=== PATIENT | female | born 1980 ===

== ENCOUNTER 2024-11-30 11:28 | Outpatient (AMB) | payer BC, SELFPAY ==
--- NOTE | 2024-11-30 11:36 | MHC.PC.OV ---
Vital Signs 11/30/24 11:43 Height 5 ft 5 in Weight 70.76 kg BMI 26.0 BP 116/90 H Respiration 14 Pulse 95 Pulse Source Pulse Oximeter Temp 97.7 F Temp Source Temporal Artery Scan Pulse Oximetry (%) 99 Oxygen Delivery Method Room Air Intake Visit Reasons: ED F/U [employer] Required: No Accompanied by: Self / Same As Patient Allergies clindamycin Allergy (Mild, Verified 11/30/24 11:43) Rash promethazine [From Phenergan] Adverse Reaction (Mild, Verified 11/30/24 11:43) Hallucinations Medication List - Last Reconciled 11/30/24 by NATASHA Duval methocarbamol 750 mg PO Q8H HPI HPI Comments History of Present Illness Details 44-year-old female presents to the office today for post ER evaluation. She presented to [facility] ED on 11/27 due to severe left-sided neck pain radiating into the left arm that had been ongoing for 1 week. No imaging was performed and she was discharged with Medrol Dosepak and 600 mg of ibuprofen every 8 hours which she has been taking with a diagnosis of cervical radiculopathy. She tells me that about 11 days ago she went to a chiropractor who performed adjustment of her cervical spine and since then has been symptomatic. She is experiencing chronic pain in the left side of the neck into the trapezius with radiation into the left arm. She describes a constant heavy dull ache with paresthesias. The pain radiates from the neck into the posterior aspect of the left arm wrapping to the dorsum of the left forearm and into the 1st 2nd and 3rd fingers. She denies any weakness. Reports pain was initially 10/10 but has improved to a 5/10 with Medrol Dosepak. She states the pain is worse in the morning and with position changes and particularly when lying down. The pain is constant. She does have history of similar severe pain in fall of 2022. At that time, was also diagnosed with cervical radiculopathy which was thought to be exercise related as she had increased weight while doing squats with dumbbells held out in front of her. She does have history of using Olympic bars for exercise as well but with benefits representative weights. She did perform PT for about 6 weeks and did experience relief. She states symptoms are similar to that episode. Since then, she has not been able to exercise. ROS: General: No fevers, malaise, unintentional weight loss Cardiovascular: No chest pain, palpitations, or leg edema Respiratory: No shortness of breath, wheezing, cough MSK: see hpi Neuro: see hpi Skin: No rashes or lesions EXAM: Constitutional - Awake and Alert, No apparent distress Eyes - PERRL Cardiovascular - S1S2, RRR, No edema Respiratory - Normal lung expansion, Normal respiratory effort, No respiratory distress, CTA bilaterally Extremities - no calf tenderness bilaterally, no swelling Musculoskeletal - neck supple with limited range of motion side to side. No midline ttp, left sided paraspinal ttp extending into the upper trapezius without significant spasm. LUE nontender to palpation. radicular symptoms reproducible with compression of the trapezius muscle. Skin - Warm/Dry Neurological - Alert & oriented x3, 4/5 strength L biceps, otherwise 5/5 strength bue, decreased sensation to touch along the ulnar and radial aspect of the L forearm Psychological - Appropriate affect [facility] Medical History (Updated 11/30/24 @ 12:05 by NATASHA Duval) Cervical radiculopathy Questionnaire PHQ-9 Over the last 2 weeks, how often have you been bothered by any of the following problems? 1. Little interest or pleasure in doing things: not at all 2. Feeling down, depressed, or hopeless: not at all 3. Trouble falling or staying asleep, or sleeping too much: not at all 4. Feeling tired or having little energy: not at all 5. Poor appetite or overeating: not at all 6. Feeling bad about yourself - or that you are a failure or have let yourself or your family down: not at all 7. Trouble concentrating on things, such as reading the newspaper or watching television: not at all 8. Moving or speaking so slowly that other people could have noticed. Or the opposite - being so fidgety or restless that you have been moving around a lot more than usual: not at all 9. Thoughts that you would be better off or of hurting yourself in some way: not at all Total score: 0 Source: Developed by Drs. Ronnie Medina, Sandra Guillen, Bravo Howard and colleagues, with an educational blossom from [employer]. Thrive Questionnaire Date Thrive assessed: 11/30/24 I am a: Patient What is your living situation today?: I have a steady place to live Within the past 12 months, did the food you bought not last and you didn't have the money to get more?: Never true Within the past 12 months, did you worry whether your food would run out before you got money to buy more?: Never true Do you have trouble paying for medicines?: No Do you have trouble getting transportation to medical appointments?: No Do you have trouble paying your heating and electricity bill?: No Do you have trouble taking care of your child, family member or friend?: No Do you have trouble with day-to-day activities such as bathing, preparing meals, shopping, managing finances, etc.?: No Are you currently unemployed and looking for a job?: No Are you interested in more education?: No Please select the resources that you would like help with: None THRIVE Score: 0 KAYCE-7 AMB Questionnaire KAYCE-7 Date KAYCE - 7 assessed: 11/30/24 Feeling nervous, anxious, or on edge: 0 = Not at all Not being able to stop or control worryin = Not at all Worrying too much about different things: 0 = Not at all Trouble relaxin = Not at all Being so restless that it is hard to sit still: 0 = Not at all Becoming easily annoyed or irritable: 0 = Not at all Feeling afraid as if something awful might happen: 0 = Not at all Total KAYCE-7 score (0-4 normal; 5-9 mild; 10-14 moderate; 15-21 severe): 0 Source: Developed by Drs. Ronine Medina, Sandra Guillen, Bravo Howard and colleagues, with an educational blossom from [employer]. Physical exam (Primary Care) Vital Signs: Last Vital Signs Temp 97.7 F 11/30/24 11:43 Pulse 95 11/30/24 11:43 Resp 14 11/30/24 11:43 BP 116/90 H 11/30/24 11:43 Pulse Ox 99 11/30/24 11:43 Oxygen Delivery Method Room Air 11/30/24 11:43 BMI result Body Mass Index 26.0 PHQ-9: PHQ-9 Score PHQ-9: Total score 0 11/30/24 11:48 Thrive Assessment: Date of Thrive Assessment Date Thrive assessed 11/30/24 11/30/24 11:48 Coding Level of Care Code New Pt Level 4 (05898) Complex EM visit Add On G2211 Diagnoses Cervical radiculopathy M54.12 Assessment & Plan Assessment & Plan (1) Cervical radiculopathy: Code(s): M54.12 - Radiculopathy, cervical region Category: Medical Plan: Recurrent, acute episode triggered by chiropractic adjustment. Given severity of pain with ongoing radicular symptoms and notable diminished sensation of the L forearm with decreased L bicep strength, would recommend MRI cervical spine to assess the nerve roots, specifically C6-7 given symptoms and physical exam findings and given recurrence of symptoms. I do recommend PT as well as ordered by the ED. Complete medrol dose pack course and continue ibuprofen. Will also prescribed Robaxin to use as needed for pain and spasm. Can also use lidocaine patches, heat or ice. Plan Follow-up for annual physical exam. Follow-up with physical therapy. MR ordered Orders: Orders MR cervical spine wo/w con Today M54.12 - Radiculopathy, cervical region Medications: New methocarbamol 750 mg PO Q8H 14 tabs 0RF
[2024-11-30 11:43] VITALS: BP 116/90; PULSE 95; RESP 14; TEMP 36.5; O2SAT 99; BMI 26.0
--- OUTSIDE RECORDS SUMMARY | 2024-11-30 13:09 | XMS_ITS | Continuity of Care Document ---
Author Organization [facility] ter Address [address] [place] [id number]- Care Team Providers Care Sales And Merchandising Representative Name Role Phone Not on Staff, PCP Primary Care Physician Unavail able Encounter [facility] ACCT R [id number] Date(s): 11/26/24 - 11/26/[address] [address]- Encounter Diagnosis Left trapezius pain with radiculopathy(Final) - 11/26/24 Discharge Disposition: A-D/C Home Attending Physician: Lynne Starr MD Admitting Physician: Lynne Starr MD Referring Physician: Not on Staff, Referring MD Encounter Type: Disch ES Allergies, Adverse Reactions, Alerts Substance Criticality Severity Reaction Reaction Severity Status clindamycin rash Active Phenergan hallucinations Activ e Medications Colace sodium 100 mg oral capsule 1 capsule = 100 mg, By Mouth, 3 times a day, PRN for constipation, # 20 capsule, 0 Refills, Maintenance, 12/19/11 7:55:25 AM EDT, Capsule Start Date: 12/19/11 Status: Ordered Quantity: 20.0 Unit: capsule Repeat number: 1 ibuprofen 600 mg oral tablet 1 tablet = 600 mg, By Mouth, Every 6 hours, # 30 tablet, 0 Refills, Maintenance, 12/19/11 7:55:29 AMEDT, Tablet Start Date: 12/19/11 Status: Ordered Quantity: 30.0 Unit: tablet Repeat number: 1 ibuprofen 600 mg oral tablet 600 mg, 1, tablet, By Mouth, Every 8 hours, with food or milk, # 15 tablet, Refills 0, Tot. Refills0, Maintenance, 11/26/24 8:02:00 AM EDT, Route to Pharmacy Electronically, [facility]/pharmacy #[id number], Partial fill upon patient request if the prescription is for a schedule II opioid drug., 72.8, kg, 11/26/24 0:23:00 EDT, Dry Weight Start Date: 11/26/24 Stop Date: 12/01/24 Status: Ordered Quantity: 15.0 Unit: tablet Repeat number: 1 Medrol Dosepak 4 mg oral tablet 1 pack/packet, By Mouth, Daily, for 6 days, as directed on package labeling, # 21 tablet, 5 Refills, Acute 01/01/25 8:02:00 AM EDT, 11/26/24 8:02:00 AM EDT, Tablet, [facility]/pharmacy #[id number], Partial fill uponpatient request if the prescription is for a schedule II opioid drug., 72.8, kg, 11/26/24 0:23:00 EDT, Dry Weight Start Date: 11/26/24 Stop Date: 01/01/25 Status: Ordered Quantity: 21.0 Unit: tablet Repeat number: 6 Motrin 600 mg oral tablet 600 mg, 1, tablet, By Mouth, 4 times a day, PRN as needed for pain, # 30, 0 Refills Start Date: 09/17/08 Status: Ordered Quantity: 30.0 Unit: Repeat number: 1 oxyCODONE 5 mg oral tablet 5 mg, 1, tablet, By Mouth, Every 6 hours, PRN, for 2 days, may take 1/2 tab, # 5 tablet, Refills 0,Tot. Refills 0, Acute 11/28/24 8:03:00 AM EDT, as needed for pain, 11/26/24 8:03:00 AM EDT, Route to Pharmacy Electronically, [facility]/pharmacy #[id number], Partial fill upon patient request if the prescription isfor a schedule II opioid drug., 72.8, kg, 11/26/24 0:23:00 EDT, Dry Weight Start Date: 11/26/24 Stop Date: 11/28/24 Status: Ordered Quantity: 5.0 Unit: tablet Repeat number: 1 Percocet-5/325 325 mg-5 mg oral tablet 1 tablet, By Mouth, Every 4 hours, PRN for pain, # 24 tablet, 0 Refills, Maintenance, 12/19/11 7:54:51 AM EDT, Tablet Start Date: 12/19/11 Status: Ordered Quantity: 24.0 Unit: tablet Repeat number: 1 Multivitamin Tablet 0 Refills, Maintenance, 10/23/11 7:11:49 AM EDT Start Date: 10/23/11 Status: Ordered Repeat number: 1 Vital Signs Most recent to oldest [Reference Range]: 1 2 3 Oxygen Saturation [94-100 %] 98 % (11/26/24 8:26 AM) 100 % (11/26/24 6:17 AM) 99 % (11/26/24: AM) Pulse Rate [55-90 bpm] 78 bpm (11/26/24 8:26 AM) 72 bpm (11/26/24 6:17 AM) 81 bpm (11/26/24 12:23 AM) Blood Pressure [90-138/55-84 mm Hg] 133/89mm Hg (11/26/24 8:26 AM) 129/85mm Hg (11/26/24 6:17 AM) 133/81mm Hg (11/26/24 12:23 AM) Respiratory Rate [16-30 br/min] 17 br/min (11/26/24 8:26 AM) 18 br/min (11/26/24 6:17 AM) 18 br/min (11/26/24 12:23 AM) Temperature [96.8-100.4 DegF] 98.0 DegF (11/26/24 6:17 AM) 98.0 DegF (11/26/24 12:23 AM) Mode of Delivery (Oxygen) Room air (11/26/24 8:26 AM) Room air (11/26/24 6:17 AM) Room air (11/26/24 12:23 AM) Blood pressure sites Arm, right (11/26/24 8:26 AM) Arm, right (11/26/24 6:17 AM) Arm, left (11/26/24 12:23 AM) Temperature Route Oral (11/26/24 6:17 AM) Oral (11/26/24 12:23 AM) Dry Weight 72.8 kg (11/26/24 12:23 AM) Dry Weight Obtained Via Standing scale (11/26/24 12:23 AM) Social History Social History Type Response Sex Female Sex Representation Female (finding) Note * Jeffery Infante: PERFORM Event Display: Patient Education Leaflets Authored Date: [id number] Physical Therapy Referral ?? 250 ?? This page is FOR PRESCRIBERS Only, ? DO NOT GIVE TO THE PATIENT?? Physical Therapy Referral Program for Management of Pain In an effort to reduce narcotic use, some of our ED patients will benefit from a direct referral torab care.?? [facility] will see INSURED patients and has a system in place to avoid sending follow up paperwork to the ED prescribers.? Note: Non-[facility] physical therapy services will probably NOT be able to handle ED generated PT referrals. ?? Patients should still follow up with their PCP as soon as possible regarding their ongoing care. Inform patients that [facility] care will discuss insurance when they call.?? Some insurance plans limit the amount of PT a patient can receive each year. ?? Complete the FIRST PAGE of the patient???s referral sheet. [place] or write in diagnosis. M odify the timing for treatment, if needed. List any major precautions (i.e.?? Non-weight bearing limb), if needed. Sign, date and print your name at the bottom. ? Physical Therapy Referral Form Patient Instructions: You are being referred to physical therapy.?? This form is your referral and MUST be brought to your appointment. You need to call to set up your appointment. ?? This form can be used at any [facility] location.?? A list of locations is attached.?? 1)?? DIAGNOSIS/ICD-10 (pauma one) Cervicalgia: M54.2 ? Strain of muscle, fascia and tendon at neck level: S16.1XXD? Radiculopathy, cervical region: M54.12? Mid back pain: M54.9 ? Low back pain:?? M54.5 Strain of muscle, fascia and tendon of lower back: S39.012D Radiculopathy, lumbosacral region: M54.17 Other:? 2)? [? ]? Evaluate and Treat 2 Times/Week for 4 weeks as needed [? ]?Other: 3)? [? ]? No Precautions [? ]?Precautions: ?? I hereby certify these services as medically necessary for the patient???s plan of care. Physician???s Signature Date Physician Name (printed)? Locations You can call any location below.?? Tell them you were seen in a [facility] Emergency Department and have a referral form.?? Remember to bring your referral form with you to the appointment. [place] Cha [address]? [place] Bliss [address], [address]? [address] ? [place] [address]? [place]es [address]? [address] ? [place] [place] [place] [address]? [place] [address] [place] [address] Road?[address] [place] [address] ? [place] [address]? [facility] [address] ? Patient Care team information Care Team Personnel Name: Not on Staff, PCP Position: [facility] Physician (General Medicine) Member Role: PCP Care Team Related Persons Name: MARLEE NIELSON Name: TRIP LINARES Name: CHANO GARCES Insurance Providers Guarantor name: DUNIA LINARES Health Plan Information #: 1 Payer: HMO [employer] Member Number: [id number] Policy Number: NA Group Number: [id number] Health Plan Information #: 2 Payer: HMO [employer] Member Number: [id number] Policy Number: NA Group Number: NA
== END 2024-11-30 13:00 | disposition home or self-care (01) ==
LOC: HO.HMCHD 11:31
PROVIDERS: PCP Physician Assistant; Visit Provider Physician Assistant
DX: M54.12 Radiculopathy, cervical region (principal)